=== PATIENT | female | born 1995 | race Caucasian/White ===

== ENCOUNTER → 2019-06-29 | Day surgery (SDC) | payer BC ==
[~2019-06-29] MED LIST: BUPIVACAINE HCL 0.5% INJ 30 ML VIAL INJ ONE; CEFAZOLIN SOD 1 GM/NS 50ML 100 ML IV ONE; DEXAMETHASONE SOD PHOS INJ 4 MG/ML VIAL ONE; FENTANYL CITRATE/PF 100MCG/2 ML INJ ONE; LIDOCAINE HCL 2% LOCAL INJ 5 ML SDV VIAL INJ ONE; MELOXICAM7.5 MG PO; MIDAZOLAM HCL 2 MG/2 ML VIAL ONE; ONDANSETRON HCL INJ 2MG/ML 2ML 2 MG/ML VIAL ONE; PROPOFOL IV EMULSION 10 MG/ML 20 ML VIAL ONE; SEVOFLURANE INHAL SOLN 250 ML PEN BTL ONE
[2019-06-29 11:36] VITALS: BP 118/79
--- NOTE | 2019-06-30 19:57 | Operative Report ---
DATE OF PROCEDURE: 06/29/2019 SURGEON: Luis Sandhu MD PREOPERATIVE DIAGNOSES: Right knee medial meniscus tear and right knee degenerative joint disease of the knee. POSTOPERATIVE DIAGNOSES: Right knee medial meniscus tear and right knee degenerative joint disease of the knee. OPERATIONS AND PROCEDURES PERFORMED: The patient underwent right knee examination under anesthesia, right knee arthroscopy, right knee partial medial meniscectomy, right knee chondroplasty of the medial tibial plateau, medial femoral condyle, and lateral tibial plateau. SURETY BOND AGENT: MARIA LUISA Kruse. ANESTHESIA: General endotracheal intubation anesthesia. IV FLUIDS: Per the anesthesia record. BRIEF DESCRIPTION OF THE PATIENT'S OPERATIVE PROCEDURE: Ms. Hurst was taken to the operating room and placed in supine position on the operating table. Following induction of general anesthesia as well as the endotracheal intubation, the patient's right lower extremity was examined under anesthesia. She was found to have a mild effusion within the knee joint, but otherwise ligamentously stable knee. The patient's lower extremity was prepped and draped in standard surgical fashion. A two-port technique was used to provide this patient's arthroscopic evaluation of the knee joint. Examination of the suprapatellar pouch, medial and lateral gutters found no evidence of loose bodies. There was no significant evidence of chondromalacia of the patellar and trochlear surfaces. The scope was then advanced to the medial compartment. Examination of the medial compartment demonstrated a torn and macerated medial meniscus. The meniscus was thoroughly probed and found to be unfixable. Next, a biting forceps and a motorized shaver were used to resect the torn portion of the meniscus. 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 A chondroplasty of the medial femoral condyle and medial tibial plateau are performed at this time. Scope was then advanced to the intercondylar notch. Anterior cruciate ligament was identified and found to be intact. Scope was then advanced to the lateral compartment. Examination of the lateral compartment demonstrated chondromalacia of the lateral tibial plateau. The lateral meniscus was in good condition. A chondroplasty of the lateral tibial plateau was performed at this time. The knee was then deflated with sterile normal saline. Each of the portal sites were closed using 4-0 nylon suture. The portal sites as well as the knee itself were injected with 0.5% Marcaine with epinephrine. Sterile dressings were applied. The patient was awakened and taken to postanesthesia care in stable condition. Geeta Cannon acted as nurses medical assistants phlebotomists for this case and was necessary for the prepping and draping the patient as well as the positioning the leg during the surgery and the closure of the wound to allow this case to be successful. MD GLADYS Vera/DEBI /[id number]
== END | disposition home or self-care (01) ==
LOC: OR 06:43
PROVIDERS: ATTEND Specialist
DX: S83.221A Peripheral tear of medial meniscus, current injury, right knee, initial encounter (principal); M17.11 Unilateral primary osteoarthritis, right knee; M94.261 Chondromalacia, right knee; W18.30XA Fall on same level, unspecified, initial encounter; Z68.35 Body mass index [BMI] 35.0-35.9, adult
CPT/HCPCS: 29881; 36415; 84702; J0690; J1100; J2001; J2250; J2405; J2704; J3010